=== PATIENT | male | born 1980 | race Caucasian/White ===

== ENCOUNTER → 2017-03-19 | Outpatient (CLI) | payer OTHER ==
[~2017-03-19] MED LIST: LISINOPRIL2.5 MG PO; METFORMIN HCL1000 MG PO; METOPROLOL TART25 MG PO; NEURONTIN 400400 MG PO; REQUIP0.5 MG PO; ZANAFLEX4 MG PO
== END ==
LOC: RAD 15:04
DX: R00.0 Tachycardia, unspecified (principal)
CPT/HCPCS: 71020; 72050; 72072; 72110

== ENCOUNTER 2021-03-25 01:46 | Emergency (ER) | payer OTHER ==
[~2021-03-25 01:46] MED LIST changes: +AUGMENTIN 875-1 EACH PO; +CLEOCIN HCL150 MG PO; +HYZAAR 50-12.51 EACH PO; +IBUPROFEN600 MG PO; +LODINE CAP 300300 MG PO; +NORCO 5-325 TA1 EACH PO
[2021-03-25 03:41] LABS: HEMOGLOBIN 17.4 gm/dl (14.0-17.5); RED BLOOD COUNT 5.52 M/UL (4.20-5.50); WHITE BLOOD COUNT 9.4 K/UL (4.5-11.0)
[2021-03-25 04:21] LABS: BUN/CREATININE RATIO 23 (0-10)
== END 2021-03-25 05:10 | disposition home or self-care (01) ==
LOC: ER1 01:46
PROVIDERS: Physician Assistant
DX: E87.6 Hypokalemia (principal); R51.9 Headache, unspecified; R55 Syncope and collapse; E11.9 Type 2 diabetes mellitus without complications; E78.5 Hyperlipidemia, unspecified; I10 Essential (primary) hypertension; F17.210 Nicotine dependence, cigarettes, uncomplicated
CPT/HCPCS: 70450; 71045; 80053; 80307; 81001; 82550; 82553; 83874; 83880; 84484; 85025; 85610; 85730; 87086; 93005; 99284

== ENCOUNTER 2021-05-14 07:28 | Emergency (ER) | payer OTHER ==
[2021-05-14] MEDS ORDERED: CYCLOBENZAPRINE10 MG PO (09:14)
[2021-05-14] MEDS ORDERED: NAPROSYN500 MG PO (09:14)
== END 2021-05-14 09:18 | disposition home or self-care (01) ==
LOC: ER1 07:28
DX: S29.012A Strain of muscle and tendon of back wall of thorax, initial encounter (principal); E11.9 Type 2 diabetes mellitus without complications; I10 Essential (primary) hypertension; X58.XXXA Exposure to other specified factors, initial encounter
CPT/HCPCS: 99283; J1100; J1885

== ENCOUNTER 2021-05-19 09:21 | Emergency (ER) | payer OTHER ==
[~2021-05-19 09:21] MED LIST changes: +CYCLOBENZAPRINE10 MG PO; +NAPROSYN500 MG PO
[2021-05-19 10:39] LABS: HEMOGLOBIN 16.8 gm/dl (14.0-17.5); RED BLOOD COUNT 5.31 M/UL (4.20-5.50); WHITE BLOOD COUNT 8.2 K/UL (4.5-11.0)
[2021-05-19 11:03] LABS: BUN/CREATININE RATIO 19 (0-10)
[2021-05-19] MEDS ORDERED: ZOFRAN4 MG PO (11:40)
[2021-05-19] MEDS ORDERED: NAPROXEN500 MG PO (11:40)
[2021-05-19] MEDS ORDERED: VISCOUS LIDOCAINE 2% TOP (11:40)
== END 2021-05-19 11:53 | disposition home or self-care (01) ==
LOC: ER1 09:21
PROVIDERS: Physician Assistant Medical
DX: K05.219 Aggressive periodontitis, localized, unspecified severity (principal); I10 Essential (primary) hypertension; F17.210 Nicotine dependence, cigarettes, uncomplicated; J44.9 Chronic obstructive pulmonary disease, unspecified; E11.9 Type 2 diabetes mellitus without complications; Z79.4 Long term (current) use of insulin
CPT/HCPCS: 80053; 85025; 96374; 96375; 99283; J1885